=== PATIENT | male | born 1965 | race Caucasian/White ===

== ENCOUNTER 2018-09-05 07:24 | Emergency (ER) | payer OTHER ==
[~2018-09-05] VITALS: Ht 185.4 cm; Wt 79.4 kg
[~2018-09-05 07:24] MED LIST: AMLODIPINE PO; ATRIPLA TABLET1 EACH PO; CENTRUM COMPLE1 EACH PO; CO Q-1010 MG PO; FISH OIL 1,0001 EAC9 PO; GEMFIBROZIL 60600 MG PO; LISINOPRIL5 MG PO; NORCO 5-325 TA1 EACH PO; PENICILLIN VK500 M1 PO; PREDNISONE 20 M20 M1 PO; PROMETHAZINE-C120 ML PO; VITAMIN E PO; ZPAK PO
[2018-09-05] MEDS ORDERED: VIKTARVY PO (07:36)
[2018-09-05] MEDS ORDERED: AUGMENTIN 875-1 EACH PO (07:54)
== END 2018-09-05 08:43 | disposition home or self-care (01) ==
LOC: ER 07:24
DX: J02.0 Streptococcal pharyngitis (principal); F17.210 Nicotine dependence, cigarettes, uncomplicated; I10 Essential (primary) hypertension; E78.00 Pure hypercholesterolemia, unspecified; Z21 Asymptomatic human immunodeficiency virus [HIV] infection status; Z88.2 Allergy status to sulfonamides